=== PATIENT | male | born 1995 | race Caucasian/White ===

== ENCOUNTER 2016-11-20 10:33 | Emergency (ER) | payer OTHER ==
[2016-11-20] MEDS ORDERED: IBUPROFEN 600 MG TABLET PO STA (11:32)
[2016-11-20] MEDS ORDERED: ACETAMINOPHEN 325 MG TABLET PO STA (11:32)
[2016-11-20] MEDS ORDERED: CEPHALEXIN 250 MG CAPSULE PO STA (11:32)
[2016-11-20] MEDS ORDERED: ACETAMINOPHEN 325 MG TABLET PO ONE (11:39)
[2016-11-20] MEDS ORDERED: IBUPROFEN 600 MG TABLET PO ONE (11:39)
[2016-11-20] MEDS ORDERED: CEPHALEXIN 250 MG CAPSULE PO ONE (11:39)
== END 2016-11-20 11:46 | disposition home or self-care (01) ==
DX: H65.92 Unspecified nonsuppurative otitis media, left ear (principal)
CPT/HCPCS: 99283; A9270

== ENCOUNTER 2019-07-24 01:23 | Emergency (ER) | payer OTHER ==
--- NOTE | 2019-07-24 01:39 | ED Physician Documentation ---
PD HPI UPPER EXT INJURY - Stated complaint Stated Complaint: LEFT ELBOW PX - Chief complaint Chief Complaint: Trauma Ext - History obtained from History obtained from: Patient - History of Present Illness Location: Left, Elbow Type of injury: Fall Where injury occurred: [place] Timing - onset: Yesterday Timing - duration: Days (1) Timing - details: Gradual onset Pain level max: 9 Pain level now: 8 Improved by: Rest, Ice, Immobilization Worsened by: Moving, Palpating Associated symptoms: Swelling. No: Weakness, Numbness, Tingling Contributing factors: No: Anticoagulated Recently seen: Not recently seen - Additonal information Additional information: pt is right handed. Fell on L elbow playing flag football. Review of Systems Constitutional: denies: Fever Neurologic: denies: Focal weakness, Numbness PD PAST MEDICAL HISTORY - Past Medical History Past Medical History: No - Past Surgical History Past Surgical History: Yes - Present Medications Home Medications: Ambulatory Orders Medication Instructions Recorded Confirmed Cephalexin [Keflex] 500 mg PO TID #21 capsule 11/20/16 Ibuprofen [Motrin] 600 mg PO TID #20 tab 11/20/16 Tramadol HCl 50 mg PO Q6H PRN #20 tablet 11/20/16 Hydrocodone/Acetaminophen 1 - 2 each PO Q6H PRN #14 tablet 07/24/19 [Hydrocodon-Acetaminophen 5-325] - Allergies Allergies/Adverse Reactions: Allergies Allergy/AdvReac Type Severity Reaction Status Date / Time No Known Drug Allergies Allergy Verified 11/20/16 10:43 - Living Situation Living Arrangement: reports: At home - Social History Does the pt smoke?: No Smoking Status: Never smoker Does the pt drink ETOH?: Yes Does the pt have substance abuse?: No - Immunizations Immunizations are current?: Yes PD ED PE NORMAL - Vitals Vital signs reviewed: Yes - General General: Alert and oriented X 3, No acute distress, Well developed/nourished - Derm Derm: Warm and dry - Extremities Extremities: Other (L elbow - TTP distal humerus. NVI. Pain with pronation/supination. Mild swelling. ) - Neuro Neuro: Alert and oriented X 3 - Psych Psych: Normal mood, Normal affect Results - Vitals Vitals: Vital Signs - 24 hr 07/24/19 07/24/19 01:26 03:10 Temperature 36.7 C 37.5 C Heart Rate 100 102 H Respiratory 18 17 Rate Blood Pressure 147/98 H 140/97 H O2 Saturation 99 99 Oxygen O2 Source Room air - Rads (name of study) Left elbow x-ray Radiology: Prelim report reviewed, EMP read contemporaneously, See rad report (Subtle nondisplaced radial head fracture. Elbow effusion. ) PD MEDICAL DECISION MAKING - ED course Complexity details: reviewed results, re-evaluated patient, considered differential, d/w patient ED course: 24-year-old male with a nondisplaced left radial head fracture and small elbow effusion. Placed in a sling for comfort. Will utilize early mobilization and if he does not improve, will see orthopedics this week and can possibly have the joint aspirated if needed. He will need orthopedic follow-up either way. Neurovascularly intact. Will prescribe pain medication for home as well. Patient counseled regarding signs and symptoms for which I believe and urgent re-evaluation would be necessary. Patient with good understanding of and agreement to plan and is comfortable going home at this time This document was made in part using voice recognition software. While efforts are made to proofread this document, sound alike and grammatical errors may occur. Departure - Departure Disposition: 01 Home, Self Care Clinical Impression: Left radial head fracture Qualifiers: Encounter type: initial encounter Fracture type: closed Fracture alignment: nondisplaced Qualified Code(s): S52.125A - Nondisplaced fracture of head of left radius, initial encounter for closed fracture Condition: Good Instructions: ED Fx Radial Head Follow-Up: [facility] [Provider Group] [facility] [Provider Group] Prescriptions: Hydrocodone/Acetaminophen [Hydrocodon-Acetaminophen 5-325] 1 - 2 each PO Q6H PRN #14 tablet PRN Reason: pain Comments: Return if you worsen. Wear the sling for the next 2 to 3 days. Start to gently move the elbow after that. Follow-up closely with orthopedics, preferably this week for further evaluation and care. They may need to remove fluid from the elbow joint. Do not drink alcohol or drive while on narcotic pain medicine. Note that many narcotic pain relievers also contain tylenol/acetaminophen. Please ensure that your total dose of acetaminophen from all sources does not exceed 3 grams (3000mg) per day. You may constipated on this medication, take a stool softener such as "Colace" twice a day while you are on it. Also recommend a cnxp-egu-gddkyqc laxative such as senna or MiraLAX any day that you do not have a bowel movement. If you received narcotic pain medication in the emergency department, do not drive or operate machinery for the next 24 hours. Discharge Date/Time: 07/24/19 03:10
[2019-07-24] MEDS ORDERED: ACETAMINOPHEN 325 MG TABLET PO STA (02:13)
--- NOTE | 2019-07-24 02:33 | XRAY Report ---
Reason: fall, L elbow pain Procedure Date: 07/24/2019 Accession Number: [id number] / [id number] Procedure: XR - Elbow 3 View LT CPT Code: FULL RESULT: EXAM: LEFT ELBOW RADIOGRAPHY EXAM DATE: 07/24/2019 02:13 AM CLINICAL HISTORY: Fall with elbow pain. COMPARISON: None. TECHNIQUE: 4 views. FINDINGS: Bones: There is a subtle nondisplaced radial head fracture. Joints: Positive elbow effusion. No dislocation. Soft Tissues: Equivocal mild proximal forearm soft tissue swelling. IMPRESSION: Subtle nondisplaced radial head fracture. Elbow effusion. RADIA
[2019-07-24] MEDS ORDERED: HYDROcod/ACET 5/325 Prepack 4 PO STA (02:50)
[2019-07-24 03:11] VITALS: BP 140/97
== END 2019-07-24 03:10 | disposition home or self-care (01) ==
LOC: ED 01:23
DX: S52.125A Nondisplaced fracture of head of left radius, initial encounter for closed fracture (principal); W18.30XA Fall on same level, unspecified, initial encounter; Y93.62 Activity, american flag or touch football; Y92.830 Public park as the place of occurrence of the external cause
CPT/HCPCS: 73080; 99283; 99284; A9270

== ENCOUNTER 2019-09-27 05:51 | Emergency (ER) | payer OTHER ==
[2019-09-27 06:02] VITALS: BP 152/85
[2019-09-27] MEDS ORDERED: DEXAMETHASONE 10 MG/ML VIAL PO STA (06:03)
[2019-09-27] MEDS ORDERED: CHERRY SYRUP 10 ML UDC PO ONE (06:03)
[2019-09-27] MEDS ORDERED: diphenhydrAMINE INJ 50 MG/ML VIAL IM STA (06:03)
[2019-09-27] MEDS ORDERED: IPRATROPIUM/ALBUTEROL 3 ML NEB INH STA (06:04)
--- NOTE | 2019-09-27 06:13 | ED Physician Documentation ---
PD HPI DYSPNEA - Stated complaint Stated Complaint: SOA/STUFFY MOUTH/RASH - Chief complaint Chief Complaint: Resp - History obtained from History obtained from: Patient - History of Present Illness Timing - onset: Enter time (429), Today Timing - onset during: Rest Timing - duration: Minutes Timing - details: Abrupt onset, Still present Inciting event(s): Allergic rxn/anaphylaxis Improved by: Benadryl, Rest Worsened by: Exertion Associated symptoms: Cough, Wheezing. 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 He has had this happen to him 1 time previously and required treatment. This occurred while he was eating. Today there is no correlation to any specific etiology. He has not had any new medications or new foods. He has a scratchy throat now and a slight cough preceding symptoms. Review of Systems Constitutional: denies: Fever Eyes: denies: Decreased vision Ears: denies: Ear pain Nose: reports: Congestion. denies: Rhinorrhea / runny nose Throat: reports: Sore throat Cardiac: denies: Chest pain / pressure, Palpitations Respiratory: reports: Dyspnea, Cough, Wheezing GI: denies: Abdominal Pain, Nausea, Vomiting : denies: Dysuria, Frequency Skin: reports: Rash Musculoskeletal: denies: Neck pain, Back pain, Extremity pain Neurologic: denies: Generalized weakness, Focal weakness, Numbness PD PAST MEDICAL HISTORY - Past Surgical History Past Surgical History: Yes - Present Medications Home Medications: Ambulatory Orders Medication Instructions Recorded Confirmed Cephalexin [Keflex] 500 mg PO TID #21 capsule 11/20/16 Ibuprofen [Motrin] 600 mg PO TID #20 tab 11/20/16 Tramadol HCl 50 mg PO Q6H PRN #20 tablet 11/20/16 Hydrocodone/Acetaminophen 1 - 2 each PO Q6H PRN #14 tablet 07/24/19 [Hydrocodon-Acetaminophen 5-325] Azithromycin [Zithromax] 250 mg PO DAILY #6 tablet 09/27/19 - Allergies Allergies/Adverse Reactions: Allergies Allergy/AdvReac Type Severity Reaction Status Date / Time No Known Drug Allergies Allergy Verified 09/27/19 06:02 - Social History Does the pt smoke?: No Smoking Status: Never smoker Does the pt drink ETOH?: Yes Does the pt have substance abuse?: No - Immunizations Immunizations are current?: Yes PD ED PE NORMAL - Vitals Vital signs reviewed: Yes (tachy and hypertensive ) - General General: Alert and oriented X 3, No acute distress, Well developed/nourished - HEENT HEENT: Atraumatic, PERRL, EOMI, Other (There is scleral injection bilaterally and mid-facial swelling. The pharynx is swollen with edematous uvula. 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, No motor deficit, No sensory de ficit, Normal speech Eye Opening: Spontaneous Motor: Obeys Commands Verbal: Oriented GCS Score: 15 - Psych Psych: Normal mood, Normal affect Results - Vitals Vitals: Vital Signs - 24 hr 09/27/19 09/27/19 06:00 06:15 Temperature 36.5 C Heart Rate 105 H 95 Respiratory 15 16 Rate Blood Pressure 152/85 H O2 Saturation 98 Oxygen O2 Source Room air - Labs Labs: Laboratory Tests 09/27/19 06:05 Group A Strep Rapid Negative PD MEDICAL DECISION MAKING - ED course Complexity details: reviewed results, re-evaluated patient, considered differential, d/w patient ED course: 24-year-old male with angioedema in his posterior pharynx swelling of the mid face and wheezing has otitis on exam and he does have exposure to strep. Rapid strep is obtained he is administered dexamethasone 10 mg orally Benadryl 25 mg IM and a DuoNeb treatment. Departure - Departure Disposition: 01 Home, Self Care Clinical Impression: Left otitis media Qualifiers: Otitis media type: suppurative Chronicity: acute Recurrence: recurrent Spontaneous tympanic membrane rupture: without spontaneous rupture Qualified Code(s): H66.005 - Acute suppurative otitis media without spontaneous rupture of ear drum, recurrent, left ear [id number] Qualifiers: Encounter type: initial encounter Qualified Code(s): T78.3XXA - Angioneurotic edema, initial encounter Condition: Stable Instructions: ED Angioedema, ED Urticaria, ED Otitis Media Acute Adult Follow-Up: [facility] [Provider Group] Prescriptions: Azithromycin [Zithromax] 250 mg PO DAILY #6 tablet
== END 2019-09-27 07:23 | disposition home or self-care (01) ==
LOC: ED 05:51
DX: T78.3XXA Angioneurotic edema, initial encounter (principal); H66.005 Acute suppurative otitis media without spontaneous rupture of ear drum, recurrent, left ear
CPT/HCPCS: 87070; 87430; 94640; 96372; 99284; A9270; J1200

== ENCOUNTER 2020-04-28 23:27 | Emergency (ER) | payer OTHER ==
--- NOTE | 2020-04-28 23:36 | ED Physician Documentation ---
History of Present Illness - Stated complaint Stated Complaint: HIVES/THROAT SWELLING - History obtained from History obtained from: Patient - History of Present Illness Timing: How many hours ago (2) Pain level max: 0 Pain level now: 0 Improved by: adriane, benadryl - Additonal information Additional information: approximately 2 hours [employer], patient had sudden onset swelling left side of face, predominantly left periorbit and left side of mouth, as well as pruritic hives on trunk and proximal BUE. also "itchy eyes and throat" (per patient). he took adriane and then benadryl and symptoms have subsequently resolved Review of Systems Constitutional: denies: Fever, Chills, Sweats Nose: denies: Rhinorrhea / runny nose, Congestion Throat: denies: Sore throat Cardiac: reports: Reviewed and negative Respiratory: reports: Reviewed and negative Skin: reports: Rash PD PAST MEDICAL HISTORY - Past Medical History Past Medical History: No - Past Surgical History Past Surgical History: Yes - Present Medications Home Medications: Ambulatory Orders Medication Instructions Recorded Confirmed Cephalexin [Keflex] 500 mg PO TID #21 capsule 11/20/16 Ibuprofen [Motrin] 600 mg PO TID #20 tab 11/20/16 Tramadol HCl 50 mg PO Q6H PRN #20 tablet 11/20/16 Hydrocodone/Acetaminophen 1 - 2 each PO Q6H PRN #14 tablet 07/24/19 [Hydrocodon-Acetaminophen 5-325] Azithromycin [Zithromax] 250 mg PO DAILY #6 tablet 09/27/19 predniSONE [Prednisone] 40 mg PO DAILY 4 Days #8 tablet 04/28/20 - Allergies Allergies/Adverse Reactions: Allergies Allergy/AdvReac Type Severity Reaction Status Date / Time No Known Drug Allergies Allergy Verified 04/28/20 23:36 - Living Situation Living Arrangement: reports: At home - Social History Does the pt smoke?: No Smoking Status: Never smoker Does the pt drink ETOH?: Yes Does the pt have substance abuse?: No - Immunizations Immunizations are current?: Yes PD ED PE NORMAL - Vitals Vital signs reviewed: Yes - General General: Alert and oriented X 3, No acute distress, Well developed/nourished - HEENT HEENT: Moist mucous membranes, Pharynx benign - Cardiac Cardiac: RRR, No murmur - Respiratory Respiratory: No respiratory distress, Clear bilaterally - Derm Derm: Normal color, Warm and dry, No rash Results - Vitals Vitals: Vital Signs - 24 hr 04/28/20 04/29/20 23:36 00:00 Temperature 36.9 C Heart Rate 102 H 96 Respiratory 16 18 Rate Blood Pressure 140/100 H O2 Saturation 98 99 Oxygen O2 Source Room air PD MEDICAL DECISION MAKING - ED course Complexity details: considered differential, d/w patient Departure - Departure Disposition: 01 Home, Self Care Clinical Impression: Allergic reaction Condition: Good Instructions: ED Allergic Reaction General Other Prescriptions: predniSONE [Prednisone] 40 mg PO DAILY 4 Days #8 tablet Discharge Date/Time: 04/29/20 00:00
[2020-04-28 23:42] VITALS: BP 140/100
== END 2020-04-29 | disposition home or self-care (01) ==
LOC: ED 23:27
DX: T78.40XA Allergy, unspecified, initial encounter (principal); L50.0 Allergic urticaria
CPT/HCPCS: 99282; 99284

== ENCOUNTER 2020-08-03 10:03 | Emergency (ER) | payer OTHER ==
[2020-08-03 11:30] LABS: BASOPHILS # (AUTO) 0.1 10^3/uL (0.0-0.1); BASOPHILS % (AUTO) 0.9 %; EOSINOPHILS # (AUTO) 0.2 10^3/uL (0.0-0.7); EOSINOPHILS % (AUTO) 2.9 %; HGB - HEMOGLOBIN 16.9 g/dL (14.0-18.0); LYMPHOCYTES # (AUTO) 2.1 10^3/uL (1.5-3.5); LYMPHOCYTES % (AUTO) 27.2 %; MEAN CORPUSCULAR HEMOGLOBIN 29.6 pg (27.0-31.0); MEAN CORPUSCULAR HGB CONC 33.7 g/dL (32.0-36.0); MEAN CORPUSCULAR VOLUME 88.1 fL (80.0-94.0); MEAN PLATELET VOLUME 8.9 fL (7.4-11.4); MONOCYTES # (AUTO) 1.2 10^3/uL (0.0-1.0); MONOCYTES % (AUTO) 15.7 %; NEUTROPHILS % (AUTO) 52.8 %; PLT - PLATELET COUNT 260 10^3/uL (130-450); RED CELL DISTRIBUTION WIDTH 12.3 % (12.0-15.0); WHITE BLOOD COUNT 7.6 x10^3/uL (4.8-10.8)
[2020-08-03 11:43] LABS: ALBUMIN 4.6 g/dL (3.2-5.5); ALBUMIN/GLOBULIN RATIO 1.3 (1.0-2.2); CALCIUM 9.7 mg/dL (8.5-10.3); CREATININE 0.9 mg/dL (0.6-1.2); TOTAL PROTEIN 8.1 g/dL (6.7-8.2)
--- NOTE | 2020-08-03 12:55 | CT Report ---
PROCEDURE: Abdomen/Pelvis WO INDICATIONS: L flank pain TECHNIQUE: Noncontrast 5 mm thick sections acquired from the diaphragms to the symphysis. 5 mm coronal and sagi ttal reformats were then performed. For radiation dose reduction, the following was used: automated exposure control, adjustment of mA and/or kV according to patient size. COMPARISON: None. FINDINGS: Image quality: Excellent. ABDOMEN: Lung bases: Lung bases are clear. Heart size is normal. Solid organs: Liver and spleen are normal in size. Gallbladder negative Pancreas is normal in cont ours. No adrenal nodules. Kidneys are normal in size, without hydronephrosis or nephrolithiasis. Peritoneum and bowel: The transverse colon is decompressed although there is some suggestion of mild mural thickening. No pericolic fat stranding or inflammation is seen. No free fluid or air. Nodes and vessels: No retroperitoneal or mesenteric adenopathy by size criteria. Aorta and inferior vena cava are normal in caliber. Miscellaneous: No ventral hernias. PELVIS: Genitourinary: Bladder wall thickness is normal. Miscellaneous: No inguinal hernias or adenopathy. Bones: No suspicious bony lesions. No vertebral body compression fractures. IMPRESSION: Possible minimal mural thickening of the transverse colon however limited evaluation given decompress ed status and this finding technically age indeterminate. Theoretically this could reflect low-grade colitis although recommend close clinical and laboratory correlation. Elsewhere, no acute abnormality . Normal appearance of the appendix. No nephrolithiasis. No specific visualized etiology for left abdominal pain Reviewed by: Michael Viveros MD on 08/03/2020 12:54 PM PDT Approved by: Michael Viveros MD on 08/03/2020 12:54 PM PDT Station ID: [id number]
[2020-08-03 12:57] LABS: BILIRUBIN,URINE NEGATIVE (NEGATIVE); GLUCOSE, URINE (UA) NEGATIVE (NEGATIVE); KETONES,URINE (UA) NEGATIVE (NEGATIVE); LEUKOCYTE ESTERASE, URINE NEGATIVE (NEGATIVE); NITRITE,URINE NEGATIVE (NEGATIVE); OCCULT BLOOD,URINE NEGATIVE (NEGATIVE); PROTEIN,URINE NEGATIVE (NEGATIVE); UROBILINOGEN,URINE 0.2 (NORMAL) E.U./dL (NORMAL)
[2020-08-03 13:01] LABS: CLARITY,URINE CLEAR (CLEAR)
--- NOTE | 2020-08-03 13:11 | ED Physician Documentation ---
History of Present Illness - Stated complaint Stated Complaint: LOWER ABDOMINAL PX - Chief complaint Chief Complaint: Abd Pain - History obtained from History obtained from: Patient - Additonal information Additional information: Patient comes emergency department complaining of left inguinal pain for the last couple of days. He states that when he sits down or twists, he gets a sharp pain in the area. He has not been doing any heavy lifting or repetitive movements, and he denies any personal or family history of hernia. No direct trauma. Patient has not noticed any swelling. No Pain in the scrotum or testicles. No swelling. No penile discharge or dysuria. No hematuria. Patient has no history of kidney stones. No abdominal pain, fevers, or nausea. No diarrhea or constipation. No blood in the stools. No other complaints at this time. Review of Systems Ten Systems: 10 systems reviewed and negative Constitutional: reports: Reviewed and negative Eyes: reports: Reviewed and negative Ears: reports: Reviewed and negative Nose: reports: Reviewed and negative Throat: reports: Reviewed and negative Cardiac: reports: Reviewed and negative Respiratory: reports: Reviewed and negative GI: reports: Abdominal Pain (Left pelvis/inguinal area). denies: Nausea, Vomiting : reports: Reviewed and negative Skin: reports: Reviewed and negative Musculoskeletal: reports: Reviewed and negative. denies: Back pain, Extremity pain, Joint pain Neurologic: reports: Reviewed and negative Psychiatric: reports: Reviewed and negative Endocrine: reports: Reviewed and negative Immunocompromised: reports: Reviewed and negative PD PAST MEDICAL HISTORY - Past Surgical History Past Surgical History: Yes - Present Medications Home Medications: Ambulatory Orders Medication Instructions Recorded Confirmed Cephalexin [Keflex] 500 mg PO TID #21 capsule 11/20/16 Ibuprofen [Motrin] 600 mg PO TID #20 tab 11/20/16 Tramadol HCl 50 mg PO Q6H PRN #20 tablet 11/20/16 Hydrocodone/Acetaminophen 1 - 2 each PO Q6H PRN #14 tablet 07/24/19 [Hydrocodon-Acetaminophen 5-325] Azithromycin [Zithromax] 250 mg PO DAILY #6 tablet 09/27/19 predniSONE [Prednisone] 40 mg PO DAILY 4 Days #8 tablet 04/28/20 - Allergies Allergies/Adverse Reactions: Allergies Allergy/AdvReac Type Severity Reaction Status Date / Time No Known Drug Allergies Allergy Verified 08/03/20 10:31 - Social History Does the pt smoke?: No Smoking Status: Never smoker Does the pt drink ETOH?: Yes Does the pt have substance abuse?: No - Immunizations Immunizations are current?: Yes PD ED PE NORMAL - Vitals Vital signs reviewed: Yes - General General: Alert and oriented X 3, No acute distress - HEENT HEENT: Atraumatic, PERRL, EOMI, Moist mucous membranes - Neck Neck: Supple, no meningeal sign - Cardiac Cardiac: RRR, No murmur, Strong equal pulses - Respiratory Respiratory: No respiratory distress, Clear bilaterally - Abdomen Abdomen: Soft, Non distended, Other (Tenderness without swelling over left inguinal area. Mild left pelvic tenderness as well.) - Derm Derm: Normal color, Warm and dry, No rash - Extremities Extremities: No deformity - Neuro Neuro: Alert and oriented X 3 - Psych Psych: Normal mood, Normal affect Results - Vitals Vitals: Vital Signs - 24 hr 08/03/20 08/03/20 10:27 13:14 Temperature 36.2 C L 36.9 C Heart Rate 79 82 Respiratory 16 14 Rate Blood Pressure 136/88 H 147/96 H O2 Saturation 100 98 Oxygen O2 Source Room air - Labs Labs: Laboratory Tests 08/03/20 08/03/20 08/03/20 11:20 11:20 12:42 WBC 7.6 RBC 5.70 Hgb 16.9 Hct 50.2 MCV 88.1 MCH 29.6 MCHC 33.7 RDW 12.3 Plt Count 260 MPV 8.9 Neut # (Auto) 4.0 Lymph # (Auto) 2.1 Green # (Auto) 1.2 H Eos # (Auto) 0.2 Baso # (Auto) 0.1 Absolute Nucleated RBC 0.00 Nucleated RBC % 0.0 Sodium 141 Potassium 4.2 Chloride 105 Carbon Dioxide 28 Anion Gap 8.0 BUN 13 Creatinine 0.9 Estimated GFR (MDRD) 103 Glucose 100 Calcium 9.7 Total Bilirubin 1.0 AST 34 ALT 69 H Alkaline Phosphatase 91 Total Protein 8.1 Albumin 4.6 Globulin 3.5 Albumin/Globulin Ratio 1.3 Lipase 23 Urine Color YELLOW Urine Clarity CLEAR Urine pH 6.0 Ur Specific [place] 1.025 Urine Protein NEGATIVE Urine Glucose (UA) NEGATIVE Urine Ketones NEGATIVE Urine Occult Blood NEGATIVE Urine Nitrite NEGATIVE Urine Bilirubin NEGATIVE Urine Urobilinogen 0.2 (NORMAL) Ur Leukocyte Esterase NEGATIVE Ur Microscopic Review NOT INDICATED Urine Culture Comments NOT INDICATED - Rads (name of study) CT abd/pelvis Radiology: Final report received, EMP read indepedently, See rad report (Possible minimal mural thickening of transverse colon; however, limited evaluation given decompressed status.) PD MEDICAL DECISION MAKING - ED course Complexity details: reviewed old records, reviewed results, re-evaluated patient, considered differential, d/w patient ED course: The patient wounds worked up with labs and CT scan of the abdomen pelvis without contrast. Work-up was unremarkable. The CT scan was read as showing possible colitis versus normal finding, and clinically, I did not feel that this patient had colitis. I discussed with him that he may have strained his inguinal area, or that he could be in the process of developing a hernia. At this point in time, the patient should avoid heavy lifting or other strenuous activities involving the area and may use [id number] analgesics/anti-inflammatories. We have discussed the need for follow-up with his primary care physician as well as the usual indications for return. Departure - Departure Disposition: 01 Home, Self Care Clinical Impression: Deep inguinal pain, left Condition: Stable Instructions: ED Pelvic Pain [facility] Comments: Your labs look good. Your CT scan does not show any obvious cause for your pain. As we have discussed, you may have strained the inguinal ligament which helps to stabilize your pelvis on each side. However, you may be in a "pre- hernia" stage where some of the connective tissue fibers are beginning to tear and cause pain but there is no actual opening for your intra-abdominal contents to bulge through. If the pain continues to get worse, or if you start to notice a bulge in the area, you should have a recheck by your primary doctor and potentially, a referral to a surgeon to discuss your options. Please avoid heavy lifting, straining, or any other action at this point in time that would worsen the pain. You may take ibuprofen and Tylenol as needed for the discomfort. Discharge Date/Time: 08/03/20 13:19
[2020-08-03 13:14] VITALS: BP 147/96
== END 2020-08-03 13:19 | disposition home or self-care (01) ==
LOC: ED 10:03
DX: R10.32 Left lower quadrant pain (principal)
CPT/HCPCS: 36415; 74176; 80053; 81001; 81003; 83690; 85025; 87086; 99284